=== PATIENT | male | born 1965 | race African-American/Black ===

== ENCOUNTER 2025-03-06 17:18 | Inpatient (IN) | payer OTHER ==
[2025-03-06] MEDS ORDERED: cefTRIAXone (ROCEPHIN) 2 GM VIAL ONE (18:02)
[2025-03-06] MEDS ORDERED: Azithromycin 500 MG VIAL ONE (18:02)
[2025-03-06 18:29] LABS: #Basophils 0.03 10x3/uL (0.0-0.2); #Eosinophils 0.25 10x3/uL (0.0-0.7); #Monocytes 0.93 10x3/uL (0.11-0.59); #Neutrophils 6.59 10x3/uL (1.40-6.50); %Basophils 0.3 % (0.0-1.0); %Eosinophils 2.6 % (0.0-10.0); %Lymphocytes 19.7 % (21.0-51.0); %Monocytes 9.5 % (0.0-10.0); %Neutrophils 67.4 % (42.0-75.0); Hematocrit 41.5 % (42.0-52.0); Hemoglobin 13.7 g/dL (14.0-18.0); Mean Corpuscular Hemoglobin 30.4 pg (27.0-31.0); Mean Corpuscular Volume 92.2 fL (78.0-98.0); Platelet Count 233 10x3/uL (130-400); Red Blood Cell (RBC) Count 4.50 mill/uL (4.70-6.10); White Blood Cell (WBC) Count 9.77 10x3/uL (4.8-10.8)
[2025-03-06 18:41] LABS: INR-International Normal Ratio 2.5; PTT 37.3 sec (22.9-36.1); Prothrombin Time 27.2 sec (12.0-14.7)
[2025-03-06 18:56] LABS: ALT (SGPT) 37 U/L (Less than 45); AST (SGOT) 40 U/L (11-34); Albumin 3.4 g/dL (3.1-4.5); Alkaline Phosphatase 69 U/L (40-110); Anion Gap 12 mmol/L (10-20); BUN (Urea Nitrogen) 8 mg/dL (8.4-25.7); Bilirubin, Total 0.5 mg/dL (0.3-1.2); Calc. Creatinine Clearance 0 mL/min (70-130); Calcium 8.3 mg/dL (7.8-10.44); Carbon Dioxide 22 mmol/L (22-29); Chloride 106 mmol/L (98-107); Globulin 2.9 g/dL (2.4-3.5); Glucose 112 mg/dL (70-105); Magnesium 2.6 mg/dL (1.6-2.6); Potassium 3.7 mmol/L (3.5-5.1); Sodium 136 mmol/L (136-145)
[2025-03-06] MEDS ORDERED: Acetaminophen 325 MG TAB PO PRN (21:55)
[2025-03-06] MEDS ORDERED: Ondansetron PF 4 MG/2 ML Vial IVP PRN (21:55)
[2025-03-06] MEDS ORDERED: Calcium Carbonate 500 MG ChewTAB PO PRN (21:55)
[2025-03-06] MEDS ORDERED: Albuterol 200 PUFF (6.7GM INHALER) INH PRN (21:58)
[2025-03-06 22:50] VITALS: BMI 25.9
[2025-03-07 04:09] LABS: #Basophils Less than 0.03 10x3/uL (0.0-0.2); #Eosinophils Less than 0.03 10x3/uL (0.0-0.7); #Monocytes 0.10 10x3/uL (0.11-0.59); #Neutrophils 10.58 10x3/uL (1.40-6.50); %Basophils 0.1 % (0.0-1.0); %Eosinophils 0.0 % (0.0-10.0); %Lymphocytes 5.1 % (21.0-51.0); %Monocytes 0.9 % (0.0-10.0); %Neutrophils 93.5 % (42.0-75.0); Hematocrit 43.6 % (42.0-52.0); Hemoglobin 13.7 g/dL (14.0-18.0); Mean Corpuscular Hemoglobin 29.3 pg (27.0-31.0); Mean Corpuscular Volume 93.4 fL (78.0-98.0); Platelet Count 200 10x3/uL (130-400); Red Blood Cell (RBC) Count 4.67 mill/uL (4.70-6.10); White Blood Cell (WBC) Count 11.31 10x3/uL (4.8-10.8)
[2025-03-07 04:17] LABS: INR-International Normal Ratio 2.8; Prothrombin Time 29.6 sec (12.0-14.7)
[2025-03-07 04:49] LABS: ALT (SGPT) 38 U/L (Less than 45); AST (SGOT) 36 U/L (11-34); Albumin 3.8 g/dL (3.1-4.5); Anion Gap 16 mmol/L (10-20); BUN (Urea Nitrogen) 11 mg/dL (8.4-25.7); Bilirubin, Total 0.3 mg/dL (0.3-1.2); Calc. Creatinine Clearance 84 mL/min (70-130); Calcium 8.5 mg/dL (7.8-10.44); Carbon Dioxide 21 mmol/L (22-29); Chloride 104 mmol/L (98-107); Globulin 2.7 g/dL (2.4-3.5); Glucose 237 mg/dL (70-105); Potassium 4.9 mmol/L (3.5-5.1); Sodium 136 mmol/L (136-145)
[2025-03-07 06:48] LABS: Alkaline Phosphatase 72 U/L (40-110)
[2025-03-07] MEDS: Mometasone 200 MCG/Formoterol 5 MCG 120 PUFF INHALER INH SCH (07:04)
[2025-03-07] MEDS: Losartan 25 MG TAB PO SCH (10:16)
[2025-03-07] MEDS: Pantoprazole 40 MG DR.TAB PO SCH (10:16)
[2025-03-07] MEDS: Gabapentin 300 MG CAP PO SCH (20:25)
[2025-03-08] MEDS: guaiFENesin/Codeine 200 mg/20 mg 10 ml Cup PO PRN (00:09)
[2025-03-08 06:17] LABS: INR-International Normal Ratio 4.3; Prothrombin Time 41.9 sec (12.0-14.7)
[2025-03-08 12:37] VITALS: BMI 25.9
[2025-03-09 03:25] LABS: INR-International Normal Ratio 3.7; Prothrombin Time 37.0 sec (12.0-14.7)
[2025-03-09 13:28] VITALS: TEMP 97.8
== END 2025-03-09 16:57 | disposition home or self-care (01) | DRG 202 ==
LOC: ERS 17:18 → IMCU/EMU 20:44
PROVIDERS: ADMIT Student in an Organized Health Care Education/Training Program; ATTEND Hospitalist
DX: J45.51 Severe persistent asthma with (acute) exacerbation (principal); J96.00 Acute respiratory failure, unspecified whether with hypoxia or hypercapnia; E78.5 Hyperlipidemia, unspecified; Z98.890 Other specified postprocedural states; Z95.2 Presence of prosthetic heart valve; Z89.421 Acquired absence of other right toe(s); I11.9 Hypertensive heart disease without heart failure; R55 Syncope and collapse; Z79.899 Other long term (current) drug therapy; Z86.73 Personal history of transient ischemic attack (TIA), and cerebral infarction without residual deficits
CPT/HCPCS: 36415; 36416; 71045; 80053; 83735; 83880; 84484; 85025; 85610; 85730; 87426; 93005; 93306; 94640; 94760; 96365; 96367; 97139; J0456; J0696; J2919; J7620